=== PATIENT | female | born 1960 | race Two or more races ===

== ENCOUNTER 2025-02-28 17:10 | Emergency (ER) | payer MEDICAID, SELFPAY ==
[2025-02-28] VITALS (8 sets, daily range): BP systolic 174–227; BP diastolic 56–78; PULSE 72–102; RESP 16–20; TEMP 36.6–37.4; O2SAT 95–97; BMI 29.5
--- NOTE | 2025-02-28 17:32 | EKG_ITS ---
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
--- NOTE | 2025-02-28 17:32 | PD.EDRME ---
Rapid Medical Screening Exam E Arrival date/time: 02/28/25 17:10 64-year-old female with no known medical history presents to the emergency room with a chief complaint of elevated blood pressure and blood sugar. Patient was sent over by her primary care provider's office. I have greeted and performed a focused initial assessment of this patient. A comprehensive ED assessment and evaluation of the patient, analysis of all test results, and completion of the medical decision making process will be conducted by additional ED providers. Chief Complaint: Recheck/Abnormal Lab/Rx Vital signs: Vital Signs Temperature 99.3 F 02/28/25 17:24 Pulse Rate 84 02/28/25 17:24 Respiratory Rate 18 02/28/25 17:24 Blood Pressure 174/65 H 02/28/25 17:24 Pulse Oximetry (%) 96 02/28/25 17:24 Oxygen Delivery Method Room Air 02/28/25 17:24 Vital signs reviewed by provider: Yes
[2025-02-28 18:29] LABS: Basophils # (Auto) 0.1 Thou/mm3 (0.0-0.2); Basophils % (Auto) 1 % (0-2.5); Eosinophils # (Auto) 0.3 Thou/mm3 (0.0-0.5); Eosinophils % (Auto) 4 % (0-10); Hematocrit 29.7 % (36.0-46.0); Hemoglobin 10.4 g/dL (12.0-16.0); Immature Granulocytes Auto 0.03 Thou/mm3 (0.00-0.00); Lymphocytes # (Auto) 2.0 Thou/mm3 (1.0-4.8); Lymphocytes % (Auto) 25 % (10-50); Mean Corpuscular HGB Conc 35.0 g/dl (31.0-37.0); Mean Corpuscular Hemoglobin 29.2 pg (25.0-35.0); Mean Corpuscular Volume 83 fL (80-100); Monocytes # (Auto) 0.5 Thou/mm3 (0.0-0.8); Monocytes % (Auto) 7 % (0-12); Neutrophils # (Auto) 5.2 Thou/mm3 (1.8-7.7); Neutrophils % (Auto) 64 % (37-80); Nucleated Red Blood Cell # 0.00 Thou/mm3 (0.00-0.00); Nucleated Red Blood Cell % 0 /100 WBC (0); Platelet Count 368 Thou/mm3 (140-440); RDW Standard Deviation 38.6 fL (36.4-46.3); Red Blood Count 3.56 Miln/mm3 (4.00-5.20); White Blood Count 8.1 Thou/mm3 (3.6-11.0)
[2025-02-28 18:33] LABS: Beta Hydroxybutyrate 0.1 mmol/L (<0.6)
[2025-02-28 18:43] LABS: Glucose Estimated Average 289 mg/dL (80-131); Hemoglobin A1C 11.7 % Hgb (4.8-6.0)
[2025-02-28 18:54] LABS: B-Type Natriuretic Peptide 54 pg/mL (0-100)
[2025-02-28 18:57] LABS: Alanine Aminotransferase 12 U/L (10-49); Albumin, Serum 3.9 gm/dL (3.4-4.8); Albumin/Globulin Ratio 1.2 (1.2-2.2); Alkaline Phosphatase 145 U/L (46-116); Anion Gap 9 (7-16); Aspartate Amino Transferase 13 U/L (0-34); BUN/Creatinine Ratio 14 Ratio (12-20); Bilirubin,Total 0.3 mg/dL (0.3-1.2); Blood Urea Nitrogen 27 mg/dL (9-23); Calcium 8.8 mg/dL (8.3-10.6); Calcium (Corrected) 8.9 mg/dL (8.5-10.1); Carbon Dioxide 22.0 mMol/L (20.0-31.0); Chloride 106 mMol/L (98-107); Creatinine (Component) 2.0 mg/dL (0.6-1.3); Estimated Creatinine Clearance 22.9 mL/min (>60); Globulin 3.3 gm/dL (2.3-3.5); Glucose 392 mg/dL (74-106); Lipase 115 U/L (12-53); Osmolality,Calculated 294 (275-295); Potassium 5.6 mMol/L (3.4-5.1); Sodium 137 mMol/L (136-145); Total Protein 7.2 gm/dL (5.7-8.2); Troponin I < 0.020 ng/mL (0.0-0.045); eGFR 27 See Note
[2025-02-28 19:02] LABS: Collection Type, Urine Clean Catch
[2025-02-28 19:25] LABS: Bacteria,Urine 2+; Bilirubin,Urine Negative (Negative); Blood,Urine Negative (Negative); Clarity,Urine Turbid (Clear/Hazy); Color,Urine Lt-Yellow (Lt Yel-Yel); Glucose, Urine 4+ (Negative); Ketones,Urine Negative (Negative); Leukocyte Esterase,Urine Positive (Negative); Nitrite,Urine Negative (Negative); PH,Urine 6.0 (5.0-7.0); Protein,Urine 3+ (Neg - Trace); RBC,Urine 6 /hpf (0-3); Specific Gravity,Urine 1.021 (1.001-1.035); Squamous Epithelial Cell,Urine 2 /hpf (0-5); Urobilinogen,Urine Negative mg/dL (0.0-1.0); WBC,Urine 174 /hpf (0-5)
--- NOTE | 2025-02-28 20:03 | EDNOTE_ITS ---
ED Recheck Abnl Lab Rx-RME/HPI General Chief Complaint: Recheck/Abnormal Lab/Rx Stated Complaint: HTN and high blood sugar at clinic Time Seen by Provider: 02/28/25 19:41 Arrival date/time: 02/28/25 17:10 RME / HPI RME / HPI narrative: 02/28/25 17:10 64-year-old female with no known medical history presents to the emergency room with a chief complaint of elevated blood pressure and blood sugar. Patient was sent over by her primary care provider's office. I have greeted and performed a focused initial assessment of this patient. A comprehensive ED assessment and evaluation of the patient, analysis of all test results, and completion of the medical decision making process will be conducted by additional ED providers. Dr. Cruz?s Main ED Evaluation: 64yo female with a history of HTN, DM presents to the ED for complaints of elevated blood pressure and elevated blood sugar. Patient was seen by her PCP today and was sent over for evaluation. Patient notes having intermittent epigastric pain for the last 2 months. She denies any N/V/D, UTI symptoms, headache, dizziness, chest pain, shortness of breath or any other associated symptoms. She has been compliant with her medications (includ ing Losartan, Janumet, and Calcium). NKA. Related Data Previous Rx's ?Medication ?Instructions ?Recorded cephalexin 500 mg capsule 500 mg PO TID #20 caps 03/01 Allergies Allergy/AdvReac Type Severity Reaction Status Date / Time No Known Drug Allergies Allergy Verified 02/28/25 17:15 Review of Systems Review of Systems Systems Reviewed: All systems reviewed, normal except as documented Past Medical History Past Medical History CARDIAC: Negative Congestive Heart Failure RESPIRATORY: Negative Chronic Obstructive Pulmonary Disease (COPD) GENITOURINARY: Negative Renal Disease MUSCULOSKELETAL: Positive Arthritis ENDOCRINE: Positive Diabetes Mellitus Type 2; Negative Diabetes Mellitus Type 1 Surgical History SURGICAL: Positive Hysterectomy Social History SMOKING STATUS: Never smoker ED Exam Narrative Physical exam: GENERAL APPEARANCE: alert and oriented x 4, well-developed, well-nourished, no acute distress VITALS: All vitals were reviewed and the pulse ox is 97% on room air, which is normal according to my interpretation. HEENT: Normocephalic, atraumatic; pupils equal, round, reactive to light; EOMI; mucous membranes pink, moist; oropharynx clear NECK: Supple LUNGS: CTABL; no wheezes, no rales, no rhonchi HEART: Regular rate, regular rhythm; normal S1, S2; no murmurs ABDOMEN: non distended; normal BS; soft, no tenderness, no guarding, no rebound; no masses, no organomegaly, no hernia BACK: no CVA tenderness EXTREMITIES: atraumatic; no edema NEUROLOGIC: awake; alert and oriented x4; cranial nerves II-XII grossly intact; no focal sensory or motor deficits PSYCHIATRIC: appropriate mood and affect SKIN: warm, dry, normal color; no rashes Course Quality Measures none Orders Category Date Time Status EKG (ED ONLY) *Do not use* NOW Care 02/28/25 17:32 Completed Insert IV NOW Care 02/28/25 20:[address] abdomen pelvis wo con Stat Exams 02/28/25 21:38 Completed EKG (ED Only) Stat Exams 02/28/25 17:32 Draft A1C [Glycohemoglobin w (eAG)] Stat Lab 02/28/25 18:15 Completed BMP [Basic Metabolic Panel] Stat Lab 02/28/25 23:48 Completed BNP [B-Type Natriuretic Peptide] Stat Lab 02/28/25 18:15 Completed Beta Hydroxybutyrate Stat Lab 02/28/25 18:15 Completed CBC Stat Lab 02/28/25 18:15 Completed CMP [Comprehensive Metabolic Panel] Stat Lab 02/28/25 18:15 Completed Lipase Stat Lab 02/28/25 18:15 Completed Troponin I Stat Lab 02/28/25 18:15 Completed UA [Urinalysis] Stat Lab 02/28/25 18:50 Completed Urine Culture Stat Lab 02/28/25 18:50 Received Acetaminophen Tab [Tylenol Tab] Med 02/28/25 21:31 Discontinued 650 mg PO X1 ONE Calcium Gluconate 10% Inj Med 02/28/25 21:34 Discontinued 1 gm IV X1 ONE Insulin Regular Med 02/28/25 21:34 Discontinued 5 unit IV X1 ONE Insulin Regular Med 03/01/25 01:59 Discontinued 5 unit IV X1 ONE Labetalol IV [Trandate IV] Med 02/28/25 20:57 Discontinued 10 mg IVP X1 ONE Sod Polystyrene Sulfon Susp [Kayexalate Susp] Med 02/28/25 21:34 Discontinued 30 gm PO X1 ONE Sodium Chloride 0.9% 1000 ml [Ns] 1,000 ml Med 02/28/25 20:16 Discontinued IV 999 mls/hr Sodium Chloride 0.9% 1000 ml [Ns] 1,000 ml Med 03/01/25 01:58 Active IV 999 mls/hr cefTRIAXone/D5w 1gm IV premix [Rocephin/D5w 1gm IV Med 02/28/25 21:37 Di scontinued premix] 1 gm in 50 ml IV X1 hydrALAZINE INJ [Apresoline Inj] Med 02/28/25 20:16 Discontinued 10 mg IVP X1 ONE Vital Signs Vital signs: Vital Signs Temperature 99.3 F 02/28/25 17:24 Pulse Rate 84 02/28/25 17:24 Respiratory Rate 18 02/28/25 17:24 Blood Pressure 174/65 H 02/28/25 17:24 Pulse Oximetry (%) 96 02/28/25 17:24 Oxygen Delivery Method Room Air 02/28/25 17:24 Recheck / Abnormal Lab / Rx MDM Narrative MDM Narrative:: Scribe Attestation: 02/28/25 - Ida Thomson am scribing for and in the presence of Dr. Cruz. Patient given calcium gluconate due to Potassium of 5.6 and 1L NS IVF due to her Creatinine of 2.0. Repeat chemistries ordered. Patient data External records reviewed:: [facility] previous records (Per chart review, patient has no previous ED visits or admissions to this facility.) Clinical information provided by:: patient Social determinants that could affect healthcare access:: none Patient has the following chronic illnesses:: HTN, DM How is presenting disease/condition affected by chronic disease/condition?: caused by Evaluation data The following diagnostics were reviewed and interpreted by me:: lab results, radiology exam(s) and EKG tracing(s) Lab and/or radiology exams considered but not ordered:: none Interpretation Summary: CBC normal, Potassium 5.6, Creatinine 2.0, Glucose 392, Troponin normal, BNP normal, Lipase 115, Anion Gap normal, UA shows positive leukocyte esterase, 6 RBCs, 124 WBCs, and 2+ bacteria. Repeat chemistries show Potassium improved to 4.0, Glucose 320, Creatinine 1.9. EKG done at 1740, NSR, rate of 76, normal intervals, normal axis, no acute ST or T wave changes, according to my interpretation. [place] [facility] Report Signed Patient: HUONG VIDAL Record#: [id number] Birthdate: 1960 Age/Sex: 64 / F Location: [facility] [place] Attending Dr: Ordering Physician: Kalee Cruz MD Date of Service: 02/28/25 Procedure(s): CT abdomen pelvis wo con Accession Number(s): [id number] cc: Cortez Kelly MD; NO PRIMARY/FAMILY,PHYSICIAN; Kalee Cruz MD~ Examination: CT abdomen and pelvis without contrast. Coronal 3-D reconstructions. Sagittal 2-D reconstructions. Date and time of exam:August 31, 2024, 10:04 PM INDICATIONS: Epigastric pain onset today CTDI: vol (mGy): 5.75 DLP: (mGycm): 291 Technique: Axial images of the abdomen have been obtained, 3 mm slice thickness Intravenous contrast material has not been administered. Low dose protocols were performed. One or more of the following dose reduction techniques were used; automated exposure control, adjustment of the mA and/or KV according to patient size, use of iterative reconstruction technique. Findings: Or splenic lesion No gallstones No pancreatic or adrenal mass No renal or ureteral calculi, no hydronephrosis No pericecal inflammatory change No bowel obstruction or diverticulitis. Distended urinary bladder Advanced history L5-S1 IMPRESSION: No renal or ureteral calculi, no hydronephrosis No CT findings of appendicitis bowel obstruction or diverticulitis Dictated By: Cortez Kelly MD Signed By: <Electronically signed by Cortez Kelly MD in OV> 02/28/25 0230 Medications / Prescriptions Medications or Prescriptions considered but not ordered:: none Medication administrations:: Medication Administration History Sodium Chloride (Ns) 1,000 mls @ 999 mls/hr IV .Q1H1M ONE Stop: 03/01/25 02:58 Last Admin: 03/01/25 02:18 Dose: 999 mls/hr Documented By: BD Discontinued Medications Acetaminophen (Acetaminophen 325 Mg Tablet) 650 mg PO X1 ONE Stop: 02/28/25 21:32 Last Admin: 02/28/25 21:47 Dose: 650 mg Documented By: BD Calcium Gluconate (Calcium Gluconate 10% Inj 1 Gm/10 Ml Vial) 1 gm IV X1 ONE Stop: 02/28/25 21:35 Last Admin: 02/28/25 21:46 Dose: 1 gm Documented By: BD Comments: LEFT AC 3 MIN Hydralazine HCl (Hydralazine Inj 20 Mg/Ml Vial) 10 mg IVP X1 ONE Stop: 02/28/25 20:17 Last Admin: 02/28/25 20:24 Dose: 10 mg Documented By: BD Sodium Chloride (Ns) 1,000 mls @ 999 mls/hr IV .Q1H1M ONE Stop: 02/28/25 21:16 Last Infusion: 02/28/25 20:54 Dose: Infused Documented By: Admin: 02/28/25 20:26 Dose: 999 mls/hr Documented By: BD Ceftriaxone Sodium/Dextrose (Rocephin/D5w 1gm Iv Premix) 1 gm in 50 mls @ 100 mls/hr IV X1 ONE Stop: 02/28/25 22:06 Last Infusion: 02/28/25 22:21 Dose: Infused Documented By: Admin: 02/28/25 21:52 Dose: 100 mls/hr Documented By: BD Insulin Human Regular (Insulin Hum Regular 1 Unit/0.01 Ml (Per Unit)) 5 unit IV X1 ONE Stop: 02/28/25 21:35 Last Admin: 02/28/25 21:45 Dose: 5 unit Documented By: BD Co-signed By: WO Comments: 20G LEFT AC PUSH TIME 2 MIN Insulin Human Regular (Insulin Hum Regular 1 Unit/0.01 Ml (Per Unit)) 5 unit IV X1 ONE Stop: 03/01/25 02:00 Last Admin: 03/01/25 02:17 Dose: 5 unit Documented By: BD Co-signed By: EE Comments: left ac Labetalol HCl (Labetalol Inj 5 Mg/Ml Vial 20 Ml) 10 mg IVP X1 ONE Stop: 02/28/25 20:58 Last Admin: 02/28/25 21:19 Dose: 10 mg Documented By: BD Sodium Polystyrene Sulfonate (Sod Polystyrene Sulfon Susp 15 Gm/60 Ml Btl) 30 gm PO X1 ONE Stop: 02/28/25 21:35 Last Admin: 02/28/25 21:46 Dose: 30 gm Documented By: BD see above Consultations Consultation(s) initiated? (list below): No Diagnosis Recheck Differential Diagnosis: other (hyperglycemia, infection, hypertensive urgency, hypertensive emergency) Most likely diagnosis given after review of the tests above:: see clinical impression below Admission Indicated Admission indicated?: not indicated Admission Request Was there a request for admission?: No Disposition Plan Disposition Plan: Discharge Discharge Attestation Discharge Attestation: The patient and all family members were given an opportunity to ask questions and understood the discharge instructions. Discharge instructions specifically effects, indications for sooner follow up or return to the emergency department, and the expected course of current diagnosis. Patient condition: Stable Discharge Plan Plan Patient Disposition: HOME (Self Care) Prescriptions/Referrals Prescriptions/Med Rec: New cephalexin 500 mg capsule 500 mg PO TID Qty: 20 0RF Referrals: No Primary/Family,Physician [Primary Care Provider] - In 1 week Problem List Clinical Impression: Hypertensive urgency, Hyperglycemia, Hyperkalemia, UTI (urinary tract infection) Patient/Caregiver Discharge Instructions Education Materials: ED Diabetes with High Blood Sugar, ED High Blood Pressure ..., ED CYSTITIS Female Adult Print Language: Faroese Stand Alone Forms: Dia Award Info., Patient Portal Info Letter
[2025-02-28] MEDS: hydrALAZINE INJ 20 MG/ML VIAL 10 MG IVP (20:24)
[2025-02-28] MEDS: SODIUM CHLORIDE 0.9% 1000 ML 1,000 ML 999 ML IV (20:26)
--- NOTE | 2025-02-28 20:58 | PC.NURSE ---
notified pt b/p is 210/72 ans pt stating she feels anxious will put no orders for b/p medication
[2025-02-28] MEDS: LABETALOL INJ 5 MG/ML VIAL 20 ML 10 MG IVP (21:19)
--- NOTE | 2025-02-28 21:38 | XR_ITS ---
Examination: CT abdomen and pelvis without contrast. Coronal 3-D reconstructions. Sagittal 2-D reconstructions. Date and time of exam:August 31, 2024, 10:04 PM INDICATIONS: Epigastric pain onset today CTDI: vol (mGy): 5.75 DLP: (mGycm): 291 Technique: Axial images of the abdomen have been obtained, 3 mm slice thickness Intravenous contrast material has not been administered. Low dose protocols were performed. One or more of the following dose reduction techniques were used; automated exposure control, adjustment of the mA and/or KV according to patient size, use of iterative reconstruction technique. Findings: Or splenic lesion No gallstones No pancreatic or adrenal mass No renal or ureteral calculi, no hydronephrosis No pericecal inflammatory change No bowel obstruction or diverticulitis. Distended urinary bladder Advanced history L5-S1 IMPRESSION: No renal or ureteral calculi, no hydronephrosis No CT findings of appendicitis bowel obstruction or diverticulitis
[2025-02-28] MEDS: INSULIN HUM REGULAR 1 UNIT/0.01 ML (PER UNIT) 5 UNIT IV (21:45)
[2025-02-28] MEDS: CALCIUM GLUCONATE 10% INJ 1 GM/10 ML VIAL IV (21:46)
[2025-02-28] MEDS: SOD POLYSTYRENE SULFON SUSP 15 GM/60 ML BTL 30 GM PO (21:46)
[2025-02-28] MEDS: ACETAMINOPHEN 325 MG TABLET 650 MG PO (21:47)
[2025-02-28] MEDS: cefTRIAXone/D5w 1gm IV premix 1 GM/50 ML BAG IV (21:52)
[2025-03-01 01:33] LABS: Chloride 109 mMol/L (98-107); Potassium 4.0 mMol/L (3.4-5.1); Sodium 142 mMol/L (136-145)
[2025-03-01 01:34] LABS: Anion Gap 15 (7-16); Carbon Dioxide 18.4 mMol/L (20.0-31.0)
[2025-03-01 01:35] LABS: Calcium 9.0 mg/dL (8.3-10.6)
[2025-03-01 01:39] LABS: BUN/Creatinine Ratio 15 Ratio (12-20); Blood Urea Nitrogen 28 mg/dL (9-23); Creatinine (Component) 1.9 mg/dL (0.6-1.3); Estimated Creatinine Clearance 24.1 mL/min (>60); Glucose 320 mg/dL (74-106); Osmolality,Calculated 300 (275-295); eGFR 29 See Note
[2025-03-01 02:02] VITALS: BP 141/75; PULSE 74; RESP 16; TEMP 36.9; O2SAT 95
[2025-03-01] MEDS: INSULIN HUM REGULAR 1 UNIT/0.01 ML (PER UNIT) 5 UNIT IV (02:17)
[2025-03-01] MEDS: SODIUM CHLORIDE 0.9% 1000 ML 1,000 ML 999 ML IV (02:18)
== END 2025-03-01 03:06 | disposition home or self-care (01) ==
PROVIDERS: Nurse Practitioner Family; Emergency Provider Emergency Medicine
DX: I16.0 Hypertensive urgency (principal); E87.5 Hyperkalemia; E11.65 Type 2 diabetes mellitus with hyperglycemia; N39.0 Urinary tract infection, site not specified; I10 Essential (primary) hypertension; R10.13 Epigastric pain; R94.31 Abnormal electrocardiogram [ECG] [EKG]
CPT/HCPCS: 36415; 74176; 80048; 80053; 81001; 82010; 83036; 83690; 83880; 84484; 85025; 87077; 87086; 87186; 93005; 96361; 96365; 96375; 99284; J0360; J0612; J0696; J1815; J3490; J7030; A9270; J1920

== ENCOUNTER 2025-06-25 19:32 | Emergency (ER) | payer SELFPAY ==
[2025-06-25 20:08] VITALS: BP 170/63; PULSE 95; RESP 20; TEMP 36.4; O2SAT 95
--- NOTE | 2025-06-25 20:11 | PD.EDRME ---
Rapid Medical Screening Exam RME Arrival date/time: 06/25/25 19:32 Chief Complaint: General Adult/Misc Complain Time Seen by Provider: 06/25/25 20:08 Vital signs: Vital Signs Temperature 97.6 F 06/25/25 20:08 Pulse Rate 95 06/25/25 20:08 Respiratory Rate 20 06/25/25 20:08 Blood Pressure 170/63 H 06/25/25 20:08 Pulse Oximetry (%) 95 06/25/25 20:08 Oxygen Delivery Method Room Air 06/25/25 20:08 E Narrative: Elevated blood sugars in the 300s for the past 4 days. c/o chest pain, sob Exam: Well-appearing, no acute distress Clinical Impression: Hyperglycemia
--- NOTE | 2025-06-25 20:12 | EKG_ITS ---
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
--- NOTE | 2025-06-25 20:12 | XR_ITS ---
EXAMINATION: PA chest single view TECHNIQUE: Upright PA chest single view Date and time: June 25, 2025, 2018 hours INDICATIONS: Elevated blood sugar the past 4 days with chest pain today. FINDINGS: Mild enlargement cardiac contour Moderate vascular congestion No lobar pneumonia or armida pulmonary edema Significant osteopenia IMPRESSION: Suspicious for mild heart failure
[2025-06-25 20:40] LABS: Base Excess, Venous -1 (-3-3); O2 Saturation, Venous 99 % (96-97); PCO2, Venous 31 mmHg (36-56); PO2, Venous 95 mmHg (15-58); pH, Venous 7.46 (7.33-7.66)
[2025-06-25 20:46] LABS: Beta Hydroxybutyrate 0.1 mmol/L (<0.6)
[2025-06-25 20:55] LABS: Basophils # (Auto) 0.0 Thou/mm3 (0.0-0.2); Basophils % (Auto) 0 % (0-2.5); Eosinophils # (Auto) 0.0 Thou/mm3 (0.0-0.5); Eosinophils % (Auto) 0 % (0-10); Hematocrit 25.4 % (36.0-46.0); Immature Granulocytes Auto 0.14 Thou/mm3 (0.00-0.00); Lymphocytes # (Auto) 0.9 Thou/mm3 (1.0-4.8); Lymphocytes % (Auto) 8 % (10-50); Mean Corpuscular HGB Conc 33.1 g/dl (31.0-37.0); Mean Corpuscular Hemoglobin 29.1 pg (25.0-35.0); Mean Corpuscular Volume 88 fL (80-100); Monocytes # (Auto) 0.5 Thou/mm3 (0.0-0.8); Monocytes % (Auto) 4 % (0-12); Neutrophils # (Auto) 8.9 Thou/mm3 (1.8-7.7); Neutrophils % (Auto) 86 % (37-80); Nucleated Red Blood Cell # 0.00 Thou/mm3 (0.00-0.00); Nucleated Red Blood Cell % 0 /100 WBC (0); Platelet Count 289 Thou/mm3 (140-440); RDW Standard Deviation 40.4 fL (36.4-46.3); Red Blood Count 2.89 Miln/mm3 (4.00-5.20); White Blood Count 10.4 Thou/mm3 (3.6-11.0)
[2025-06-25 21:08] LABS: Hemoglobin 8.4 g/dL (12.0-16.0)
[2025-06-25 21:10] LABS: Alanine Aminotransferase 26 U/L (10-49); Albumin, Serum 4.1 gm/dL (3.4-4.8); Albumin/Globulin Ratio 1.4 (1.2-2.2); Alkaline Phosphatase 125 U/L (46-116); Anion Gap 10 (7-16); Aspartate Amino Transferase 21 U/L (0-34); BUN/Creatinine Ratio 12 Ratio (12-20); Bilirubin,Total 0.2 mg/dL (0.3-1.2); Blood Urea Nitrogen 26 mg/dL (9-23); Calcium 9.0 mg/dL (8.3-10.6); Calcium (Corrected) 9.0 mg/dL (8.5-10.1); Carbon Dioxide 21.6 mMol/L (20.0-31.0); Chloride 99 mMol/L (98-107); Creatinine (Component) 2.2 mg/dL (0.6-1.3); Globulin 2.9 gm/dL (2.3-3.5); Osmolality,Calculated 296 (275-295); Potassium 5.6 mMol/L (3.4-5.1); Sodium 131 mMol/L (136-145); Total Protein 7.0 gm/dL (5.7-8.2); Troponin I < 0.020 ng/mL (0.0-0.045); eGFR 24 See Note
[2025-06-25 21:10] LABS: Collection Type, Urine Clean Catch
[2025-06-25 21:18] LABS: B-Type Natriuretic Peptide 431 pg/mL (0-100)
[2025-06-25 21:21] LABS: Glucose 614 mg/dL (74-106)
[2025-06-25 21:32] LABS: Glucose Estimated Average 246 mg/dL (80-131); Hemoglobin A1C 10.2 % Hgb (4.8-6.0)
[2025-06-25 21:37] VITALS: BP 183/75; PULSE 90; RESP 19; TEMP 37.2; O2SAT 98
[2025-06-25 21:57] LABS: Bilirubin,Urine Negative (Negative); Blood,Urine Negative (Negative); Clarity,Urine Clear (Clear/Hazy); Color,Urine Lt-Yellow (Lt Yel-Yel); Glucose, Urine 4+ (Negative); Ketones,Urine Negative (Negative); Leukocyte Esterase,Urine Positive (Negative); Nitrite,Urine Negative (Negative); PH,Urine 6.5 (5.0-7.0); Protein,Urine 2+ (Neg - Trace); RBC,Urine 2 /hpf (0-3); Specific Gravity,Urine 1.018 (1.001-1.035); Squamous Epithelial Cell,Urine < 1 /hpf (0-5); Urobilinogen,Urine Negative mg/dL (0.0-1.0); WBC,Urine 169 /hpf (0-5)
--- NOTE | 2025-06-25 22:07 | PD.EDADULT ---
ED General RME/HPI General Chief complaint: General Adult/Misc Complain Stated complaint: BLOOD SUGAR HIGH Time Seen by Provider: 06/25/25 20:08 Arrival date/time: 06/25/25 19:32 RME / HPI RME / HPI narrative: Elevated blood sugars in the 300s for the past 4 days. c/o chest pain, sob Dr. Thornton?s Main ED Evaluation: 64yo female with a history of DM, HTN presents to the ED for a chief complaint of elevated blood sugar. Patient was seen by her PCP yesterday and her insulin was decreased to 30 units. Today when she went back for a re-check, patient's blood sugar was noted to be high, so they upped the insulin to 40 units. Patient's blood sugar has persistently been high and she was concerned, so she came in for evaluation. Patient also notes having dysuria and urinary frequency x 2 days. Denies any other associated symptoms. NKA. Related Data Previous Rx's ?Medication ?Instructions ?Recorded cephalexin 500 mg capsule 500 mg PO TID #20 caps 03/01/25 cephalexin 500 mg capsule 1,000 mg (2 x 500 mg) PO BID 7 06/26/25 days #28 caps Allergies Allergy/AdvReac Type Severity Reaction Status Date / Time No Known Drug Allergies Allergy Verified 06/25/25 19:34 Review of Systems Review of Systems Systems Reviewed: All systems reviewed, normal except as documented Past Medical History Past Medical History CARDIAC: Positive Hypertension; Negative Congestive Heart Failure RESPIRATORY: Negative Chronic Obstructive Pulmonary Disease (COPD) GENITOURINARY: Negative Renal Disease MUSCULOSKELETAL: Positive Arthritis ENDOCRINE: Positive Diabetes Mellitus Type 2; Negative Diabetes Mellitus Type 1 Surgical History SURGICAL: Positive Hysterectomy Social History SMOKING STATUS: Never smoker ED Exam Narrative Physical exam: Generally patient is alert and in no obvious distress elderly appearing female, heart regular rate and rhythm, lungs clear to auscultation equal bilaterally, abdomen soft bowel sounds present nondistended mild suprapubic abdominal tenderness without rebound, extremities show no edema neurologic exam shows [place] Coma Scale of 15 Course Quality Measures none Orders Category Date Time Status EKG (ED ONLY) *Do not use* NOW Care 06/25/25 20:12 Completed Insert IV NOW Care 06/25/25 22:03 Active CXR [XR chest 1V] Stat Exams 06/25/25 20:12 Completed EKG (ED Only) Stat Exams 06/25/25 20:12 Draft BMP [Basic Metabolic Panel] Stat Lab 06/25/25 23:39 Completed BNP [B-Type Natriuretic Peptide] Stat Lab 06/25/25 20:29 Completed Beta Hydroxybutyrate Stat Lab 06/25/25 20:29 Completed CBC Stat Lab 06/25/25 20:29 Completed CMP [Comprehensive Metabolic Panel] Stat Lab 06/25/25 20:29 Completed Hemoglobin A1C [Glycohemoglobin w (eAG)] Stat Lab 06/25/25 20:29 Completed Troponin I Stat Lab 06/25/25 20:29 Completed UA [Urinalysis] Stat Lab 06/25/25 20:47 Completed VBG [Venous Blood Gas] Stat Lab 06/25/25 20:29 Completed Insulin Regular Med 06/25/25 22:17 Discontinued 16 unit IV X1 ONE Ringers Lactated 1000 ml [Lactated Ringers] 1,000 ml Med 06/25/25 22:17 Discontinued IV 999 mls/hr cefTRIAXone/D5w 1gm IV premix [Rocephin/D5w 1gm IV Med 06/25/25 22:17 Discontinued premix] 1 gm in 50 ml IV X1 Vital Signs Vital signs: Vital Signs Temperature 97.6 F 06/25/25 20:08 Pulse Rate 95 06/25/25 20:08 Respiratory Rate 20 06/25/25 20:08 Blood Pressure 170/63 H 06/25/25 20:08 Pulse Oximetry (%) 95 06/25/25 20:08 Oxygen Delivery Method Room Air 06/25/25 20:08 Discharge Plan Plan Patient Disposition: HOME (Self Care) Prescriptions/Referrals Prescriptions/Med Rec: New cephalexin 500 mg capsule 1,000 mg PO BID 7 Days Qty: 28 0RF No Action cephalexin 500 mg capsule 500 mg PO TID Qty: 20 0RF Referrals: Tigist Hickey MD [Primary Care Provider, Internal Medicine] - In 1 week Problem List Clinical Impression: Poorly controlled diabetes mellitus, Acute UTI Patient/Caregiver Discharge Instructions Education Materials: ED Diabetes with High Blood Sugar, ED CYSTITIS Female Adult Additional Instructions: Continue current medications. Take the antibiotic as prescribed. Follow-up with your doctor. Return to ER as needed or if condition worsens. Print Language: Stateless Stand Alone Forms: Dia Award Info., Patient Portal Info Letter MDM Narrative [facility] hospital course (for use when minimal MDM required): Scribe Attestation: 06/25/25 - Ida Thomson am scribing for and in the presence of Dr. Thornton. Blood sugar was 651 but the patient is not in diabetic ketoacidosis. Urine is infected. Patient was hydrated with 1 L of lactated Ringer's and given 16 units of regular insulin IV. She was also given Rocephin 1 g IV for the UTI. Blood sugar decreased at 371. She is to continue her diabetic medication with her insulin that was just increased by primary care. I think she is somewhat insulin resistant at this time due to the urinary tract infection. She will be given a prescription for cephalexin to be taken as prescribed. Continue all other current medications. Follow-up with her doctor. Return to ER as needed or if condition worsens. Clinical Information Provided by: patient Medical Records reviewed [facility] (Per chart review, patient was seen here on 02/28/25 for hyperglycemia.) Meds/Rx considered, not ordered None Labs/Rad/Tests considered, not ordered None Chronic Illness/Social Conditions Explain: Hx DM, HTN Labs Labs: interpreted by me Imaging Imaging interpretation: interpreted by nv Imaging Interpretation(s): [place] [facility] Report Signed Patient: Maya Nguyen Record#: [id number] Birthdate: 1960 Age/Sex: 64 / F Location: [facility] Attending Dr: Ordering Physician: Leonel Chou PA-C Date of Service: 06/25/25 Procedure(s): XR chest 1V Accession Number(s): [id number] cc: Cortez Kelly MD; Leonel Chou PA-C~ EXAMINATION: PA chest single view TECHNIQUE: Upright PA chest single view Date and time: June 25, 2025, 2018 hours INDICATIONS: Elevated blood sugar the past 4 days with chest pain today. FINDINGS: Mild enlargement cardiac contour Moderate vascular congestion No lobar pneumonia or armida pulmonary edema Significant osteopenia IMPRESSION: Suspicious for mild heart failure Dictated By: Cortez Kelly MD Signed By: <Electronically signed by Cortez Kelyl MD in OV> 06/25/252043 Medication Administration(s) Medication Administration History Discontinued Medications Lactated Ringer's (Lactated Ringers) 1,000 mls @ 999 mls/hr IV .Q1H1M ONE Stop: 06/25/25 23:17 Last Admin: 06/25/25 22:55 Dose: 999 mls/hr Documented By: ROZINA Ceftriaxone Sodium/Dextrose (Rocephin/D5w 1gm Iv Premix) 1 gm in 50 mls @ 100 mls/hr IV X1 ONE Stop: 06/25/25 22:46 Last Admin: 06/25/25 23:41 Dose: 100 mls/hr Documented By: ROZINA Insulin Human Regular (Insulin Hum Regular 1 Unit/0.01 Ml (Per Unit)) 16 unit IV X1 ONE Stop: 06/25/25 22:18 Last Admin: 06/25/25 22:55 Dose: 16 unit Documented By: ROZINA Co-signed By: ION see above Diagnosis Differential Diagnosis ED Complaint MDM: See MDM
[2025-06-25] MEDS: RINGERS LACTATED 1000 ML 1,000 ML 999 ML IV (22:55)
[2025-06-25] MEDS: INSULIN HUM REGULAR 1 UNIT/0.01 ML (PER UNIT) 16 UNIT IV (22:55)
[2025-06-25] MEDS: cefTRIAXone/D5w 1gm IV premix 1 GM/50 ML BAG IV (23:41)
[2025-06-26 00:01] LABS: Anion Gap 9 (7-16); BUN/Creatinine Ratio 18 Ratio (12-20); Blood Urea Nitrogen 35 mg/dL (9-23); Calcium 8.4 mg/dL (8.3-10.6); Carbon Dioxide 20.6 mMol/L (20.0-31.0); Chloride 106 mMol/L (98-107); Creatinine (Component) 2.0 mg/dL (0.6-1.3); Glucose 371 mg/dL (74-106); Osmolality,Calculated 294 (275-295); Potassium 4.7 mMol/L (3.4-5.1); Sodium 136 mMol/L (136-145); eGFR 27 See Note
[2025-06-26 01:01] VITALS: PULSE 90; RESP 20; TEMP 36.6; O2SAT 95
== END 2025-06-26 01:02 | disposition home or self-care (01) ==
PROVIDERS: Physician Assistant; Emergency Provider Emergency Medicine; PCP Student in an Organized Health Care Education/Training Program
DX: N30.90 Cystitis, unspecified without hematuria (principal); E11.65 Type 2 diabetes mellitus with hyperglycemia; E11.69 Type 2 diabetes mellitus with other specified complication; I10 Essential (primary) hypertension
CPT/HCPCS: 36415; 71045; 80048; 80053; 81001; 82010; 82803; 83036; 83880; 84484; 85025; 93005; 96361; 96365; 99284; J0696; J1815; J7120